=== PATIENT | male | born 1945 | race American Indian/Alaskan Native ===

== ENCOUNTER 2018-03-26 15:37 | Emergency (ER) | payer MEDICARE, MEDICAID ==
[~2018-03-26] VITALS: Ht 180.3 cm; Wt 196.0 kg
[~2018-03-26 15:37] MED LIST: ACCU CHEK STRIPS; ALB0.5UD IH; ASPI-1265 PO; BUDE10.2 INH; CARV-50 PO; CHOL10002 PO; DIL100C PO; DULO-31 PO; FENO135C PO; FURO-150 PO; HYDR-565 PO; ISOS60TA4 PO; LIDO700A22 TP; LISI-600 PO; MSC100T PO; NEBU-161; NEO/3.5O RIGHTEYE; NITR0.4T48 SL; OMEP-84 PO; OXYGEN; PRAS10TA6 PO; PRED10TA23 PO; SIMV20TA5 PO; SPIIN INH; TRAZ-91 PO; TRIA1TAB3 PO
[2018-03-26] MEDS ORDERED: ondansetron/PF 4mg/2ml inj IV ONE (15:45)
[2018-03-26] MEDS ORDERED: morphine 4 MG/ML inj SYRINge IV ONE ×2 (15:45→16:50)
[2018-03-26] MEDS: nitroGLYCERIN 0.4mg SUBLingual tab SL PRN ×3 (15:56→16:20)
[2018-03-26 16:14] LABS: BASOPHILS % (AUTO) 0.4 % (0-1); EOSINOPHILS # (AUTO) 0.3 X10'3 (0-0.9); EOSINOPHILS % (AUTO) 3.3 % (0-6); HEMATOCRIT 41.7 % (42.0-52.0); HEMOGLOBIN 14.1 g/dl (14.0-17.9); LYMPHOCYTES # (AUTO) 1.7 X10'3 (1.1-4.8); LYMPHOCYTES % (AUTO) 19.8 % (21-51); MEAN CORPUSCULAR HEMOGLOBIN 30.7 PG (27.0-31.0); MEAN CORPUSCULAR HGB CONC 33.8 % (33.0-36.5); MEAN CORPUSCULAR VOLUME 90.8 FL (78-98); MEAN PLATELET VOLUME 9.6 FL (7.4-10.4); MONOCYTES # (AUTO) 0.6 X10'3 (0-0.9); MONOCYTES % (AUTO) 7.2 % (2-12); NEUTROPHILS # (AUTO) 6.1 X10'3 (1.8-7.7); NEUTROPHILS % (AUTO) 69.3 % (42-75); PLATELET COUNT 190 X10'3 (140-440); RED BLOOD COUNT 4.59 X10'6 (4.70-6.10); RED CELL DISTRIBUTION WIDTH 14.3 % (11.5-14.5); WHITE BLOOD COUNT 8.8 X10'3 (4.5-11.0)
[2018-03-26 16:29] LABS: ALANINE AMINOTRANSFERASE 18 U/L (12-78); ALBUMIN 3.2 G/DL (3.4-5.0); ALKALINE PHOSPHATASE 91 IU/L (46-116); ANION GAP 8 (8-16); ASPARTATE AMINO TRANSFERASE 5 U/L (10-37); BILIRUBIN,TOTAL 0.2 MG/DL (0.1-1.0); BLOOD UREA NITROGEN 18 MG/DL (7-18); BUN/CREATININE RATIO 15.9 (5.4-32.0); CHLORIDE 107 MMOL/L (99-107); CREATININE 1.13 MG/DL (0.60-1.10); GLUCOSE 179 MG/DL (70-104); POTASSIUM 3.6 MMOL/L (3.5-5.1); SODIUM 142 MMOL/L (135-145); TOTAL CARBON DIOXIDE 27.5 MMOL/L (24-32); TOTAL PROTEIN 6.3 G/DL (6.4-8.2); eGFR 64 ML/MIN
[2018-03-26 17:17] VITALS: BP 175/89
[2018-03-26] MEDS ORDERED: NITR0.4T51 SL (17:31)
[2018-03-26] MEDS ORDERED: furosemide 10 MG/1 ML 10ml inj IV ONE (17:45)
[2018-03-26] MEDS ORDERED: furosemide 40mg/4ml inj IV ONE (17:45)
== END 2018-03-26 18:48 | disposition home or self-care (01) ==
LOC: ER 15:38
DX: I20.8 Other forms of angina pectoris (principal); I11.0 Hypertensive heart disease with heart failure; I50.9 Heart failure, unspecified; I25.10 Atherosclerotic heart disease of native coronary artery without angina pectoris; K21.9 Gastro-esophageal reflux disease without esophagitis; J44.9 Chronic obstructive pulmonary disease, unspecified; G89.29 Other chronic pain; M19.90 Unspecified osteoarthritis, unspecified site; E78.00 Pure hypercholesterolemia, unspecified; Z86.718 Personal history of other venous thrombosis and embolism; Z86.73 Personal history of transient ischemic attack (TIA), and cerebral infarction without residual deficits; Z98.61 Coronary angioplasty status; Z90.49 Acquired absence of other specified parts of digestive tract; Z95.1 Presence of aortocoronary bypass graft; Z98.890 Other specified postprocedural states; Z88.0 Allergy status to penicillin; Z88.8 Allergy status to other drugs, medicaments and biological substances; Z79.82 Long term (current) use of aspirin; Z79.899 Other long term (current) drug therapy
CPT/HCPCS: 36415; 71045; 80053; 83880; 84484; 85025; 93005; 93971; 96374; 96375; 96376; 99285; J1940; J2270; J2405

== ENCOUNTER 2018-11-13 18:15 | Inpatient (IN) | payer MEDICARE, MEDICAID ==
[~2018-11-13] VITALS: Ht 182.9 cm; Wt 125.0 kg
[~2018-11-13 18:15] MED LIST changes: +HYDR-4353 PO; -HYDR-565 PO
--- NOTE | 2018-11-13 19:24 | NUR ---
PT REFUSING TO GIVE ME INFORMATION WHY THEY ARE HERE. PT FAMILY MEMBER SAYS SHE HAS PAPERWORK BUT IS "NOT COMFORTABLE GIVING IT TO ME". 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
[2018-11-13] MEDS ORDERED: oxyCODONE/APAP 10/325mg tablet PO ONE (19:35)
[2018-11-13] MEDS ORDERED: ISOS30TA9 PO (19:42)
[2018-11-13] MEDS ORDERED: MORP60TA66 PO (19:42)
[2018-11-13] MEDS ORDERED: PHEN100C4 PO (19:42)
[2018-11-13] MEDS ORDERED: FURO-150 PO (19:42)
[2018-11-13] MEDS ORDERED: POTA10TA19 PO (19:42)
[2018-11-13 20:04] LABS: ALANINE AMINOTRANSFERASE 20 U/L (12-78); ALBUMIN 3.5 G/DL (3.4-5.0); ALKALINE PHOSPHATASE 78 IU/L (46-116); ANION GAP 8 (8-16); ASPARTATE AMINO TRANSFERASE 16 U/L (10-37); BASOPHILS # (AUTO) 0.1 X10'3 (0-0.2); BASOPHILS % (AUTO) 0.7 % (0-1); BILIRUBIN,TOTAL 0.2 MG/DL (0.1-1.0); BLOOD UREA NITROGEN 28 MG/DL (7-18); BUN/CREATININE RATIO 25.9 (5.4-32.0); CALCIUM 9.6 MG/DL (8.5-10.1); CHLORIDE 104 MMOL/L (99-107); CREATININE 1.08 MG/DL (0.60-1.10); EOSINOPHILS # (AUTO) 0.4 X10'3 (0-0.9); EOSINOPHILS % (AUTO) 3.6 % (0-6); GLUCOSE 135 MG/DL (70-104); HEMATOCRIT 44.3 % (42.0-52.0); LYMPHOCYTES # (AUTO) 2.2 X10'3 (1.1-4.8); LYMPHOCYTES % (AUTO) 20.7 % (21-51); MEAN CORPUSCULAR HEMOGLOBIN 30.5 PG (27.0-31.0); MEAN CORPUSCULAR HGB CONC 33.8 g/dL (33.0-36.5); MEAN CORPUSCULAR VOLUME 90.1 FL (78-98); MEAN PLATELET VOLUME 9.3 FL (7.4-10.4); MONOCYTES # (AUTO) 0.8 X10'3 (0-0.9); MONOCYTES % (AUTO) 7.1 % (2-12); NEUTROPHILS # (AUTO) 7.2 X10'3 (1.8-7.7); NEUTROPHILS % (AUTO) 67.9 % (42-75); PLATELET COUNT 242 X10'3 (140-440); RED BLOOD COUNT 4.92 X10'6 (4.70-6.10); RED CELL DISTRIBUTION WIDTH 13.8 % (11.5-14.5); SODIUM 140 MMOL/L (135-145); TOTAL CARBON DIOXIDE 27.6 MMOL/L (24-32); TOTAL PROTEIN 6.9 G/DL (6.4-8.2); WHITE BLOOD COUNT 10.6 X10'3 (4.5-11.0); eGFR 67 ML/MIN
[2018-11-13] MEDS ORDERED: heparin 10,000 units/1 ML INJ IV PRN (20:50)
[2018-11-13] MEDS ORDERED: heparin 10,000 units/1 ML INJ IV ONE (20:50)
[2018-11-13] MEDS ORDERED: ondansetron/PF 4mg/2ml inj IV PRN (21:25)
[2018-11-13] MEDS ORDERED: mag hydrox/Alum hydrox/simeth 30ml oral suspension PO PRN (21:25)
[2018-11-13] MEDS ORDERED: magnesium hydroxide 30ml (MOM) UD suspension PO PRN (21:25)
[2018-11-13] MEDS ORDERED: acetaminophen 325mg tablet PO PRN (21:25)
[2018-11-13] MEDS ORDERED: morphine 4 MG/ML inj SYRINge IV PRN (21:25)
--- NOTE | 2018-11-13 21:28 | NUR ---
PER MD JOSEPH PATIENT OKAY TO HAVE FOOD, PT AND FAMILY MEMBER GIVEN PAPER BAG LUNCH.
[2018-11-13] MEDS ORDERED: HYDROcodone/acetaminophen 10/325mg tab PO PRN (21:30)
--- NOTE | 2018-11-13 21:30 | NUR ---
HEPARIN DRIP ON HOLD PENDING COAGS.
[2018-11-13 21:45] LABS: INR 1.1 INR; PARTIAL THROMBOPLASTIN TIME 32 SECONDS (22-32); PROTHROMBIN TIME 10.7 SECONDS (9.0-12.0)
[2018-11-13] MEDS: heparin 25,000 UNIT/250ml bag 250 ML IV SCH (21:56)
[2018-11-13 22:00] VITALS: BP 132/53
[2018-11-13 22:02] LABS: PHENYTOIN (DILANTIN) 1.6 UG/ML (10.0-20.0)
--- NOTE | 2018-11-13 22:22 | NUR ---
CALLED REPORT TO JULIA PAVON AT PCU, PT CONDITION REVIEWED, PENDING LABS REVIEWED, MEDICATION DRIPS REVIEWED.
--- NOTE | 2018-11-13 22:25 | NUR ---
Patient in room PCU 3013. I have received report from Chente ED RN and had the opportunity to ask questions and assume patient care.
--- NOTE | 2018-11-13 22:40 | NUR ---
Pt arrived via [facility] fr/ED in no acute distress. Able to walk to his bed, gait steady. IV Heparin infusing to L arm site at 1000U/HR. POC reviewed w/pt, oriented to bed, room, and surroundings. Pt. states has been to this facility in the past and is very familiar w/current environment. Admission process completed w/pt. answering all questions. C/O interm pain to L breast area. [place]ima admin w/fair relief. Edema noted to R ankle at 2+. Edema also noted to L ankle at approx 1+. Amb to BR to void. Gait is steady. Troponins cont. per protocol, trending down.
[2018-11-14] VITALS (8 sets, daily range): BP systolic 141–194; BP diastolic 47–87
[2018-11-14 02:20] LABS: BASOPHILS # (AUTO) 0.1 X10'3 (0-0.2); BASOPHILS % (AUTO) 0.7 % (0-1); EOSINOPHILS # (AUTO) 0.4 X10'3 (0-0.9); EOSINOPHILS % (AUTO) 4.3 % (0-6); HEMATOCRIT 42.4 % (42.0-52.0); HEMOGLOBIN 13.9 g/dl (14.0-17.9); LYMPHOCYTES # (AUTO) 2.3 X10'3 (1.1-4.8); MEAN CORPUSCULAR HGB CONC 32.9 g/dL (33.0-36.5); MEAN CORPUSCULAR VOLUME 91.3 FL (78-98); MEAN PLATELET VOLUME 9.8 FL (7.4-10.4); MONOCYTES # (AUTO) 0.7 X10'3 (0-0.9); MONOCYTES % (AUTO) 8.1 % (2-12); NEUTROPHILS # (AUTO) 5.7 X10'3 (1.8-7.7); NEUTROPHILS % (AUTO) 61.9 % (42-75); PLATELET COUNT 208 X10'3 (140-440); RED BLOOD COUNT 4.64 X10'6 (4.70-6.10); RED CELL DISTRIBUTION WIDTH 13.7 % (11.5-14.5); WHITE BLOOD COUNT 9.2 X10'3 (4.5-11.0)
[2018-11-14 03:11] LABS: ALANINE AMINOTRANSFERASE 20 U/L (12-78); ALBUMIN 3.2 G/DL (3.4-5.0); ALBUMIN/GLOBULIN RATIO 1.1 (1.1-1.5); ALKALINE PHOSPHATASE 78 IU/L (46-116); ANION GAP 8 (8-16); ASPARTATE AMINO TRANSFERASE 16 U/L (10-37); BILIRUBIN,TOTAL 0.2 MG/DL (0.1-1.0); BLOOD UREA NITROGEN 28 MG/DL (7-18); BUN/CREATININE RATIO 27.5 (5.4-32.0); CHLORIDE 106 MMOL/L (99-107); CREATININE 1.02 MG/DL (0.60-1.10); GLUCOSE 181 MG/DL (70-104); POTASSIUM 4.2 MMOL/L (3.5-5.1); SODIUM 141 MMOL/L (135-145); TOTAL CARBON DIOXIDE 26.6 MMOL/L (24-32); TOTAL PROTEIN 6.2 G/DL (6.4-8.2); eGFR 72 ML/MIN
--- NOTE | 2018-11-14 06:49 | NUR ---
Patient in room PCU 3013. I have received report from Mary PAVON and had the opportunity to ask questions and assume patient care. Pt is on room air, heparin drip running at 1,000 units per hour, pt denies chest pain, pt in no apparent distress, will continue to monitor.
--- NOTE | 2018-11-14 06:49 | NUR ---
Problems reprioritized. Patient report given, questions answered & plan of care reviewed with Trice PAVON.
[2018-11-14] MEDS: heparin 25,000 UNIT/250ml bag 250 ML IV SCH ×2 (07:43→16:20)
[2018-11-14] MEDS: budesonide 0.5mg/2ml UD nebule IH SCH ×2 (07:57→19:43)
[2018-11-14] MEDS: PRASUGREL 10 MG PO SCH (08:00)
[2018-11-14] MEDS: phenytoin sod ER 100mg capsule PO SCH ×2 (08:05→21:14)
[2018-11-14] MEDS: furosemide 20MG tablet PO SCH (08:06)
[2018-11-14] MEDS: aspirin 81mg tab.chew PO SCH (08:06)
[2018-11-14] MEDS: isosorbide mononitrate 30mg tab.SR.24H PO SCH (08:06)
[2018-11-14] MEDS: morphine ER 100mg tablet PO SCH ×3 (08:07→21:11)
[2018-11-14] MEDS: carVEDilol 12.5mg tablet PO SCH ×2 (08:07→21:11)
[2018-11-14] MEDS: potassium chloride 10mEq ER tablet PO SCH (08:07)
[2018-11-14] MEDS: fenofibrate 145mg tablet PO SCH (08:07)
[2018-11-14] MEDS: triamterene/HCTZ 37.5/25mg tablet PO SCH (08:08)
[2018-11-14] MEDS ORDERED: regadenoson 0.4mg/5ml syringe IV PRN (08:45)
[2018-11-14] MEDS ORDERED: aminophylline 250mg/10ml inj. IV PRN (08:45)
[2018-11-14] MEDS ORDERED: nitroGLYCERIN 0.4mg SUBLingual tab SL PRN (08:45)
[2018-11-14] MEDS ORDERED: metoprolol tartrate 1mg/ml inj IV PRN (08:45)
--- NOTE | 2018-11-14 09:59 | NUR ---
Pt. specific medications Will come from the family member and are not available this morning for administration.
[2018-11-14 10:15] LABS: CHOL/HDL RATIO 3.8 (0.00-4.99); CHOLESTEROL 168 MG/DL (0-200); HDL CHOLESTEROL 44 MG/DL (35-60); LDL CHOLESTEROL 104 MG/DL (50-100); TRIGLYCERIDES 131 MG/DL (20-135)
--- NOTE | 2018-11-14 13:02 | NUR ---
Pt. Specific medication update. thinks she may have the pills in her suitcase, she will bring them into the hospital today for identification.
[2018-11-14] MEDS: pantoprazole 40mg Tablet.DR PO SCH (16:12)
[2018-11-14] MEDS: LIDOcaine 5% patch TP SCH (16:14)
--- NOTE | 2018-11-14 17:21 | NUR ---
Pt. specific Medications are taken to Pharmacy for ID. #4 each pink tablets and #4 each oblong yellow tablets.
--- NOTE | 2018-11-14 17:34 | NUR ---
comfort level, Anti Platelet Pt. is comfortable with treatment plan, need for interaction with his beloved pet is satisfied this afternoon. Plavix substitute is made available to our pharmacy for verification.
--- NOTE | 2018-11-14 18:26 | NUR ---
CHACORTA JOHNSON RM 3012X BLOOD PRESSURE IS 184/97 hE IS COMPLAINING OF A HEADACHE. HEPRIN DRSANA IS RUNNING, HE IS SCHEDULED FOR CATH IN THE AM. PAGE SENT TO DEANNA MEADE
[2018-11-14] MEDS ORDERED: hydrALAZINE 20mg/ml inj. IV PRN (18:30)
--- NOTE | 2018-11-14 18:45 | NUR ---
Problems reprioritized. Patient report given, questions answered & plan of care reviewed with Mary PAVON.
--- NOTE | 2018-11-14 18:50 | NUR ---
ELEVATED BLOOD PRESSURE 184/97. NAUSEA, VOMITING, SEVERE HEADACHE. DEANNA MEADE PAGED, ORDERS RECIEVED, RECHECK BP AT 7 PM CONTACT DEANNA MEADE.
--- NOTE | 2018-11-14 19:11 | NUR ---
Patient in room PCU 3013. I have received report from Trice PAVON and had the opportunity to ask questions and assume patient care.
--- NOTE | 2018-11-14 19:11 | NUR ---
at BS. Pt appears flushed, C/O itchiness. Scratch bardales noted on back and legs. C/O nausea, vomited X 1 approx 75cc of brown liquid. Spouse is requesting this nurse to obtain ord f/Benadryl. POC reviewed w/pt. and spouse. To recheck BP and status of COFFEY at 1920.
--- NOTE | 2018-11-14 19:45 | NUR ---
Dr. Connolly notified of BP improvement at 141/66. also notified of pt's C/O feeling itchy, pink appearance to face, back and arms. Ord. obtained and Benadryl PO admin f/mod. relief of itchiness. Pt. educated to effects of using long finger nails to scratch his skin and IV Heparin that is now stopped. Bleeding noted to back of R UA at scratch sites as well as upper L thigh. Assisted in getting all skin areas cleansed w/cessation of bleeding. Occass diaphoresis around face and head also noted. Pt. enc to lay in bed and to call staff as needed f/voiding in BR. Pt. also educated to NPO status and planned Stress Test in am, w/good understanding. No further C/O N/V, tolerating HS meds, PO fluids, and sandwich well.
[2018-11-14] MEDS ORDERED: diphenhydrAMINE 25mg capsule PO PRN (20:45)
[2018-11-14] MEDS ORDERED: SIMVASTATIN 20 MG TABLET PO SCH (21:00)
[2018-11-14] MEDS ORDERED: TYPE IN GENERIC & BRAND NAME OF PATIENT MED STRENGTH & FORM PO SCH (21:00)
[2018-11-14] MEDS ORDERED: duloxetine 30mg CAPSULE.DR PO SCH (21:00)
[2018-11-14] MEDS ORDERED: morphine ER 30mg tablet PO SCH (21:00)
[2018-11-14] MEDS ORDERED: atorvastatin 20mg tablet PO SCH (21:00)
[2018-11-14] MEDS ORDERED: SIMVASTATIN 20 MG PO SCH (21:00)
[2018-11-15] VITALS (12 sets, daily range): BP systolic 100–160; BP diastolic 45–84
[2018-11-15 05:35] LABS: BASOPHILS % (AUTO) 0.4 % (0-1); EOSINOPHILS # (AUTO) 0.3 X10'3 (0-0.9); EOSINOPHILS % (AUTO) 2.3 % (0-6); HEMATOCRIT 41.6 % (42.0-52.0); HEMOGLOBIN 13.7 g/dl (14.0-17.9); LYMPHOCYTES # (AUTO) 1.2 X10'3 (1.1-4.8); LYMPHOCYTES % (AUTO) 10.4 % (21-51); MEAN PLATELET VOLUME 9.3 FL (7.4-10.4); MONOCYTES # (AUTO) 0.9 X10'3 (0-0.9); MONOCYTES % (AUTO) 8.1 % (2-12); NEUTROPHILS % (AUTO) 78.8 % (42-75); PLATELET COUNT 201 X10'3 (140-440); RED BLOOD COUNT 4.57 X10'6 (4.70-6.10); RED CELL DISTRIBUTION WIDTH 13.8 % (11.5-14.5); WHITE BLOOD COUNT 11.4 X10'3 (4.5-11.0)
--- NOTE | 2018-11-15 06:10 | NUR ---
Patient in room PCU 3013. I have received report from Mary PAVON and had the opportunity to ask questions and assume patient care.
[2018-11-15 06:22] LABS: ALANINE AMINOTRANSFERASE 23 U/L (12-78); ALBUMIN 3.2 G/DL (3.4-5.0); ALKALINE PHOSPHATASE 65 IU/L (46-116); ANION GAP 6 (8-16); ASPARTATE AMINO TRANSFERASE 21 U/L (10-37); BILIRUBIN,TOTAL 0.3 MG/DL (0.1-1.0); BLOOD UREA NITROGEN 22 MG/DL (7-18); BUN/CREATININE RATIO 24.2 (5.4-32.0); CALCIUM 8.8 MG/DL (8.5-10.1); CHLORIDE 102 MMOL/L (99-107); CREATININE 0.91 MG/DL (0.60-1.10); GLUCOSE 117 MG/DL (70-104); POTASSIUM 4.4 MMOL/L (3.5-5.1); SODIUM 137 MMOL/L (135-145); TOTAL CARBON DIOXIDE 28.6 MMOL/L (24-32); TOTAL PROTEIN 6.3 G/DL (6.4-8.2); eGFR 82 ML/MIN
--- NOTE | 2018-11-15 06:40 | NUR ---
Problems reprioritized. Patient report given, questions answered & plan of care reviewed with Jn PAVON.
[2018-11-15] MEDS: PRASUGREL 10 MG PO SCH (08:00)
[2018-11-15] MEDS: budesonide 0.5mg/2ml UD nebule IH SCH (08:00)
[2018-11-15] MEDS: furosemide 20MG tablet PO SCH (08:45)
[2018-11-15] MEDS: triamterene/HCTZ 37.5/25mg tablet PO SCH (08:45)
[2018-11-15] MEDS: isosorbide mononitrate 30mg tab.SR.24H PO SCH (08:46)
[2018-11-15] MEDS: morphine ER 100mg tablet PO SCH (08:46)
[2018-11-15] MEDS: phenytoin sod ER 100mg capsule PO SCH (08:46)
[2018-11-15] MEDS: aspirin 81mg tab.chew PO SCH (08:46)
[2018-11-15] MEDS: potassium chloride 10mEq ER tablet PO SCH (08:47)
[2018-11-15] MEDS: carVEDilol 12.5mg tablet PO SCH (08:47)
[2018-11-15] MEDS: fenofibrate 145mg tablet PO SCH (08:47)
[2018-11-15] MEDS: LIDOcaine 5% patch TP SCH (08:53)
[2018-11-15] MEDS ORDERED: regadenoson 0.4mg/5ml syringe IV ONE (10:20)
[2018-11-15] MEDS ORDERED: aminophylline 250mg/10ml inj. IV PRN (10:20)
[2018-11-15] MEDS ORDERED: regadenoson 0.4mg/5ml syringe IV PRN (10:20)
[2018-11-15] MEDS ORDERED: aminophylline inj. 10 ML IV ONE (10:20)
[2018-11-15] MEDS ORDERED: PANT40TA4 PO (12:05)
[2018-11-15] MEDS ORDERED: NITR0.4T48 SL (12:08)
--- NOTE | 2018-11-15 12:08 | NUR ---
Paged Dr. Best PAGER ID: [phone] MESSAGE: Jn PAVON [phone]: Can Hamlin: can pt resume diet? Stress test completed and results viewable. Want to confirm before resuming diet. Thank you.
[2018-11-15] MEDS: pantoprazole 40mg Tablet.DR PO SCH (12:14)
--- NOTE | 2018-11-15 14:00 | NUR ---
Patient Discharged. Patient discharged home via private vehicle accompanied by . IV catheter removed, catheter intact. Tele leads removed from patient and tele box returned to telephone order dispatcher. New prescriptions and discharge instructions discussed with RN. New prescriptions called into patient's preferred pharmacy of [facility]. All patient belongings were sent home with patient. Patient wheeled down via wheelchair accompanied by RN.
--- NOTE | 2018-11-15 14:05 | NUR ---
pt taken to private vehicle via wheelchair in stable condition with spouse. all belongings with pt.
== END 2018-11-15 14:00 | disposition home or self-care (01) | DRG 206 ==
LOC: ER 18:16 → ED HOLD 21:25 → PCU 3S 22:48
PROVIDERS: ADMIT Internal Medicine; ATTEND Internal Medicine
PROC: 4A02XM4 Measurement of Cardiac Total Activity, External Approach (ICD-10-PCS; principal; 2018-11-15)
PROC: 3E033HZ Introduction of Radioactive Substance into Peripheral Vein, Percutaneous Approach (ICD-10-PCS; 2018-11-15)
DX: M94.0 Chondrocostal junction syndrome [Tietze] (principal); E78.00 Pure hypercholesterolemia, unspecified; E78.5 Hyperlipidemia, unspecified; I25.10 Atherosclerotic heart disease of native coronary artery without angina pectoris; F17.210 Nicotine dependence, cigarettes, uncomplicated; G40.909 Epilepsy, unspecified, not intractable, without status epilepticus; Z96.641 Presence of right artificial hip joint; M19.90 Unspecified osteoarthritis, unspecified site; M25.551 Pain in right hip; R01.1 Cardiac murmur, unspecified; G47.30 Sleep apnea, unspecified; G89.4 Chronic pain syndrome; I11.0 Hypertensive heart disease with heart failure; I50.9 Heart failure, unspecified; I65.29 Occlusion and stenosis of unspecified carotid artery; J44.9 Chronic obstructive pulmonary disease, unspecified; K21.9 Gastro-esophageal reflux disease without esophagitis; Z95.1 Presence of aortocoronary bypass graft; Z95.5 Presence of coronary angioplasty implant and graft; Z90.49 Acquired absence of other specified parts of digestive tract; Z88.1 Allergy status to other antibiotic agents; Z88.0 Allergy status to penicillin; Z88.8 Allergy status to other drugs, medicaments and biological substances; Z79.899 Other long term (current) drug therapy; Z79.82 Long term (current) use of aspirin; Z86.73 Personal history of transient ischemic attack (TIA), and cerebral infarction without residual deficits; Z86.718 Personal history of other venous thrombosis and embolism; Z71.6 Tobacco abuse counseling
CPT/HCPCS: 36415; 71045; 78452; 80053; 80061; 80185; 83880; 84484; 85025; 85610; 85730; 93005; 93017; 93306; 93880; 94640; 94760; 99285; A9500; G0378; J0280; J0360; J1644; J2270; J2405; J7626; Q0163

== ENCOUNTER 2019-02-25 22:20 | Inpatient (IN) | payer MEDICARE, MEDICAID ==
[~2019-02-25] VITALS: Ht 180.3 cm; Wt 125.0 kg
[~2019-02-25 22:20] MED LIST changes: -DIL100C PO; +ISOS30TA9 PO; -ISOS60TA4 PO; -LIDO700A22 TP; -LISI-600 PO; +MORP60TA66 PO; -NEBU-161; -NEO/3.5O RIGHTEYE; -OMEP-84 PO; +PANT40TA4 PO; +PHEN100C4 PO; +POTA10TA19 PO; -PRED10TA23 PO; -SPIIN INH; -TRAZ-91 PO
[2019-02-25 22:52] LABS: BASOPHILS # (AUTO) 0.1 X10'3 (0-0.2); BASOPHILS % (AUTO) 0.7 % (0-1); EOSINOPHILS # (AUTO) 0.4 X10'3 (0-0.9); HEMATOCRIT 43.4 % (42.0-52.0); HEMOGLOBIN 14.4 g/dl (14.0-17.9); LYMPHOCYTES # (AUTO) 2.3 X10'3 (1.1-4.8); LYMPHOCYTES % (AUTO) 19.9 % (21-51); MEAN CORPUSCULAR HEMOGLOBIN 30.3 PG (27.0-31.0); MEAN CORPUSCULAR HGB CONC 33.3 g/dL (33.0-36.5); MEAN PLATELET VOLUME 9.3 FL (7.4-10.4); MONOCYTES % (AUTO) 8.7 % (2-12); NEUTROPHILS % (AUTO) 67.7 % (42-75); PLATELET COUNT 211 X10'3 (140-440); RED BLOOD COUNT 4.76 X10'6 (4.70-6.10); RED CELL DISTRIBUTION WIDTH 14.1 % (11.5-14.5); WHITE BLOOD COUNT 11.8 X10'3 (4.5-11.0)
[2019-02-25 23:00] LABS: ALANINE AMINOTRANSFERASE 24 U/L (12-78); ALBUMIN 3.3 G/DL (3.4-5.0); ALKALINE PHOSPHATASE 80 IU/L (46-116); ANION GAP 5 (8-16); ASPARTATE AMINO TRANSFERASE 14 U/L (10-37); BILIRUBIN,TOTAL 0.2 MG/DL (0.1-1.0); BLOOD UREA NITROGEN 34 MG/DL (7-18); BUN/CREATININE RATIO 30.9 (5.4-32.0); CALCIUM 9.1 MG/DL (8.5-10.1); CHLORIDE 108 MMOL/L (99-107); GLUCOSE 114 MG/DL (70-104); POTASSIUM 4.4 MMOL/L (3.5-5.1); SODIUM 140 MMOL/L (135-145); TOTAL PROTEIN 6.7 G/DL (6.4-8.2); eGFR 66 ML/MIN
[2019-02-25 23:07] LABS: MAGNESIUM 2.1 MG/DL (1.5-2.4)
[2019-02-26] MEDS ORDERED: normal saline 1000ML IV soln IVB ONE (00:05)
--- NOTE | 2019-02-26 00:10 | NUR ---
NOTIFIED [facility] THAT PT BP 81/33, ORDERED 1 L NS BOLUS STAT
[2019-02-26] MEDS ORDERED: ipratropium/albuterol 3ml nebule NEB ONE (00:15)
[2019-02-26] MEDS ORDERED: dexamethasone sod phosphate 10mg/ml inj IV STA (00:39)
[2019-02-26 01:16] LABS: D-DIMER 0.33 MG/L FEU (0-0.50)
[2019-02-26] MEDS ORDERED: CARV25TA PO (01:26)
[2019-02-26] MEDS ORDERED: enoxaparin 100mg/ml syringe SUBCUT ONE (03:15)
--- NOTE | 2019-02-26 03:30 | NUR ---
PT FRUSTRATED WITH WAIT FOR ROOM UPSTAIRS AND STATED HE WAS GOING TO LEAVE. [facility] MD TALKED TO PATIENT ABOUT CRITICAL CONDITION, AND PT DECIDED TO STAY.
--- NOTE | 2019-02-26 05:40 | NUR ---
AFTER AMBULATING TO BATHROOM, PT REPORTS NEW ONSET CP, PAIN 10/10.
[2019-02-26] MEDS ORDERED: nitroGLYCERIN 0.4mg SUBLingual tab SL PRN ×2 (05:45→08:30)
[2019-02-26] MEDS ORDERED: morphine 4 MG/ML inj SYRINge IV ONE (05:45)
[2019-02-26] MEDS ORDERED: metoprolol tartrate 50mg tablet PO ONE (05:55)
[2019-02-26] MEDS ORDERED: metoprolol tartrate 1mg/ml inj IV ONE (05:55)
[2019-02-26 06:26] LABS: TROPONIN I 0.08 NG/ML (0.0-0.05)
--- NOTE | 2019-02-26 07:26 | NUR ---
PT ASKING FOR COFFEE. IN NO DISTRESS.
[2019-02-26] MEDS ORDERED: nitroGLYCERIN 1gm ointment UD TP ONE (07:50)
--- NOTE | 2019-02-26 08:03 | NUR ---
NITRO 1 INCH STRIP APPLIED TO LEFT SHOULDER.
[2019-02-26] MEDS ORDERED: ondansetron/PF 4mg/2ml inj IV PRN (08:10)
[2019-02-26] MEDS ORDERED: potassium CL 10mEq/100ml bag 100 ML IV PRN (08:10)
[2019-02-26] MEDS ORDERED: potassium Cl 40MEQ/NS 500ml 500 ML IV PRN (08:10)
[2019-02-26] MEDS ORDERED: magnesium hydroxide 30ml (MOM) UD suspension PO PRN (08:10)
[2019-02-26] MEDS ORDERED: potassium Cl 20 mEq SR tablet PO PRN ×2 (08:10)
[2019-02-26] MEDS ORDERED: acetaminophen 325mg tablet PO PRN (08:10)
[2019-02-26] MEDS ORDERED: magnesium 4gm in 100ml NS 100 ML IV PRN (08:10)
[2019-02-26] MEDS ORDERED: magnesium Cl slow-release 64mg tablet PO PRN (08:10)
[2019-02-26] MEDS ORDERED: mag hydrox/Alum hydrox/simeth 30ml oral suspension PO PRN (08:10)
[2019-02-26] MEDS ORDERED: magnesium 2GM in 50ml NS 50 ML IV PRN (08:10)
[2019-02-26] MEDS ORDERED: HYDROcodone/acetaminophen 10/325mg tab PO PRN (08:20)
[2019-02-26] MEDS ORDERED: metoprolol tartrate 1mg/ml inj IV PRN (08:30)
[2019-02-26] MEDS ORDERED: regadenoson 0.4mg/5ml syringe IV ONE (08:30)
[2019-02-26] MEDS ORDERED: aminophylline 250mg/10ml inj. IV PRN (08:30)
[2019-02-26] MEDS: furosemide 20MG tablet PO SCH (08:42)
[2019-02-26 08:44] LABS: PHENYTOIN (DILANTIN) 1.5 UG/ML (10.0-20.0)
[2019-02-26 08:59] LABS: HEMOGLOBIN A1C 6.2 % (4.5-6.2)
[2019-02-26 09:35] VITALS: BP 126/60
[2019-02-26 11:00] VITALS: BP 98/46
[2019-02-26] MEDS: morphine ER 100mg tablet PO SCH ×2 (13:43→20:39)
--- NOTE | 2019-02-26 14:33 | NUR ---
PAGER ID: [phone] MESSAGE: [phone] Can Starks: Do you want him on diabetic protocol? He was also hoping he could get Nicotine lonzenges. SAVANAH Rivers [phone]
[2019-02-26 15:00] VITALS: BP 132/59
[2019-02-26 18:00] VITALS: BP 123/54
--- NOTE | 2019-02-26 18:21 | NUR ---
Problems reprioritized. Patient report given, questions answered & plan of care reviewed with SAVANAH Higginbotham.
--- NOTE | 2019-02-26 19:21 | NUR ---
Patient in room PCU 3018. I have received report from Silvestre PAVON and had the opportunity to ask questions and assume patient care.
[2019-02-26] MEDS ORDERED: 2 PO SCH (20:00)
[2019-02-26] MEDS: phenytoin sod ER 100mg capsule PO SCH (20:41)
[2019-02-26] MEDS: heparin, porcine 5000 units/ml vial SQ SCH (20:42)
[2019-02-26] MEDS: enoxaparin 100mg/ml syringe SUBCUT SCH (20:43)
[2019-02-26] MEDS ORDERED: morphine ER 30mg tablet PO SCH (21:00)
[2019-02-26] MEDS ORDERED: duloxetine 30mg CAPSULE.DR PO SCH (21:00)
[2019-02-26 22:00] VITALS: BP 142/46
--- NOTE | 2019-02-27 00:34 | NUR ---
Problems reprioritized. Patient report given, questions answered & plan of care reviewed with SAVANAH Watson.
--- NOTE | 2019-02-27 00:36 | NUR ---
Patient in room PCU 3018. I have received report from SAVANAH Higginbotham and had the opportunity to ask questions and assume patient care.
[2019-02-27 02:00] VITALS: BP 141/54
--- NOTE | 2019-02-27 02:39 | NUR ---
Patient in room 3018B started complaining of chest pain. Vital signs stable with BP 141/54, heart rate71 bpm and respiration rate 16bpm. He is in sinus rhythm (60-70) and ST monitoring ok. Notified MD and ECG performed.
[2019-02-27 02:56] LABS: BASOPHILS # (AUTO) 0.1 X10'3 (0-0.2); BASOPHILS % (AUTO) 0.6 % (0-1); EOSINOPHILS # (AUTO) 0.2 X10'3 (0-0.9); EOSINOPHILS % (AUTO) 1.7 % (0-6); HEMATOCRIT 44.1 % (42.0-52.0); LYMPHOCYTES % (AUTO) 17.2 % (21-51); MEAN CORPUSCULAR HEMOGLOBIN 30.9 PG (27.0-31.0); MEAN CORPUSCULAR HGB CONC 34.1 g/dL (33.0-36.5); MEAN CORPUSCULAR VOLUME 90.7 FL (78-98); MEAN PLATELET VOLUME 9.7 FL (7.4-10.4); MONOCYTES # (AUTO) 0.8 X10'3 (0-0.9); MONOCYTES % (AUTO) 6.8 % (2-12); NEUTROPHILS # (AUTO) 8.6 X10'3 (1.8-7.7); NEUTROPHILS % (AUTO) 73.7 % (42-75); PLATELET COUNT 191 X10'3 (140-440); RED BLOOD COUNT 4.86 X10'6 (4.70-6.10); WHITE BLOOD COUNT 11.7 X10'3 (4.5-11.0)
[2019-02-27 03:19] LABS: ALANINE AMINOTRANSFERASE 22 U/L (12-78); ALBUMIN 3.5 G/DL (3.4-5.0); ALKALINE PHOSPHATASE 64 IU/L (46-116); ANION GAP 4 (8-16); ASPARTATE AMINO TRANSFERASE 18 U/L (10-37); BILIRUBIN,TOTAL 0.2 MG/DL (0.1-1.0); BLOOD UREA NITROGEN 29 MG/DL (7-18); BUN/CREATININE RATIO 29.9 (5.4-32.0); CALCIUM 9.4 MG/DL (8.5-10.1); CHLORIDE 104 MMOL/L (99-107); CHOL/HDL RATIO 4.2 (0.00-4.99); CHOLESTEROL 179 MG/DL (0-200); CREATININE 0.97 MG/DL (0.60-1.10); GLUCOSE 84 MG/DL (70-104); HDL CHOLESTEROL 43 MG/DL (35-60); LDL CHOLESTEROL 107 MG/DL (50-100); MAGNESIUM 1.9 MG/DL (1.5-2.4); SODIUM 139 MMOL/L (135-145); TOTAL CARBON DIOXIDE 30.8 MMOL/L (24-32); TOTAL PROTEIN 7.1 G/DL (6.4-8.2); TRIGLYCERIDES 206 MG/DL (20-135); eGFR 76 ML/MIN
[2019-02-27 03:22] LABS: POTASSIUM 4.5 MMOL/L (3.5-5.1)
[2019-02-27 06:00] VITALS: BP 137/54
--- NOTE | 2019-02-27 06:24 | NUR ---
Problems reprioritized. Patient report given, questions answered & plan of care reviewed with Silvestre PAVON.
--- NOTE | 2019-02-27 06:27 | NUR ---
Patient in room PCU 3018. I have received report from SAAVNAH Beck and had the opportunity to ask questions and assume patient care.
[2019-02-27] MEDS: furosemide 20MG tablet PO SCH (07:35)
[2019-02-27] MEDS: morphine ER 100mg tablet PO SCH (07:36)
[2019-02-27] MEDS: phenytoin sod ER 100mg capsule PO SCH (07:36)
[2019-02-27] MEDS ORDERED: atorvastatin 20mg tablet PO SCH (08:00)
[2019-02-27] MEDS ORDERED: PRASUGREL PO SCH (08:00)
[2019-02-27] MEDS ORDERED: K and/or MAG REPLACEMENT MC SCH (08:00)
[2019-02-27] MEDS: heparin, porcine 5000 units/ml vial SQ SCH (08:00)
[2019-02-27] MEDS ORDERED: triamterene/HCTZ 37.5/25mg tablet PO SCH (08:00)
--- NOTE | 2019-02-27 08:13 | NUR ---
PAGER ID: [phone] MESSAGE: [phone] Can Hamlin has both heparin and lovenox ordered. Which one do you want him to receive? SAVANAH [phone]
[2019-02-27] MEDS: enoxaparin 100mg/ml syringe SUBCUT SCH (08:47)
--- NOTE | 2019-02-27 08:55 | NUR ---
PAGER ID: [phone] MESSAGE: [phone] Can Hamlin is wondering since the tashia scan got cancelled if he could get DC orders. He and his are hoping to get out of here by 9:30 so they could meet a friend. SAVANAH Rivers [phone]
[2019-02-27] MEDS ORDERED: ASPI81TA30 PO (09:07)
--- NOTE | 2019-02-27 11:26 | NUR ---
DC. IV and tele DC'd. Stable for DC per MD. Patient has Aspirin 81mg already at home. Instructed on follow-up, chest pain and dm survival skills.
== END 2019-02-27 09:45 | disposition home or self-care (01) | DRG 313 ==
LOC: ER 22:21 → PCU 3S 02-26 08:43
PROVIDERS: ADMIT Internal Medicine; ATTEND Internal Medicine
DX: R07.89 Other chest pain (principal); E78.00 Pure hypercholesterolemia, unspecified; E78.5 Hyperlipidemia, unspecified; F17.210 Nicotine dependence, cigarettes, uncomplicated; G40.909 Epilepsy, unspecified, not intractable, without status epilepticus; G47.30 Sleep apnea, unspecified; G89.29 Other chronic pain; M19.90 Unspecified osteoarthritis, unspecified site; I11.0 Hypertensive heart disease with heart failure; I25.10 Atherosclerotic heart disease of native coronary artery without angina pectoris; I50.9 Heart failure, unspecified; J44.9 Chronic obstructive pulmonary disease, unspecified; K21.9 Gastro-esophageal reflux disease without esophagitis; Z79.02 Long term (current) use of antithrombotics/antiplatelets; Z79.899 Other long term (current) drug therapy; Z86.73 Personal history of transient ischemic attack (TIA), and cerebral infarction without residual deficits; Z95.1 Presence of aortocoronary bypass graft; Z99.81 Dependence on supplemental oxygen; Z88.1 Allergy status to other antibiotic agents; Z88.0 Allergy status to penicillin; Z88.8 Allergy status to other drugs, medicaments and biological substances; Z86.718 Personal history of other venous thrombosis and embolism; Z90.49 Acquired absence of other specified parts of digestive tract
CPT/HCPCS: 36415; 71045; 80053; 80061; 80185; 82948; 83036; 83735; 83880; 84484; 85025; 85379; 87070; 93005; 93306; 94640; 94760; 96372; 96374; 96375; 99285; G0378; J1100; J1644; J1650; J2270; J2405; J3490